=== PATIENT | female | born 1995 | race Native Hawaiian/Other Pacific Islander ===

== ENCOUNTER 2021-12-11 22:59 | Outpatient (CLI) | payer SELFPAY | END 2021-12-11 23:00 | disposition home or self-care (01) | LOC: AMB 12-12 11:50 | PROVIDERS: Visit Provider Internal Medicine | DX: R45.851 Suicidal ideations (principal); F91.9 Conduct disorder, unspecified | CPT/HCPCS: A0425; A0429 ==

== ENCOUNTER 2021-12-11 23:23 | Emergency (ER) | payer SELFPAY ==
--- NOTE | 2021-12-11 23:36 | PC.NURSE ---
Call to poison control. Watch for tachycardia, QTc prolongation, seizures, acidosis, and renal insufficiency. Watch for 8hrs. EKG, BMP, utox, acetaminophen, salicylates. Repeat EKG and labs in 6hrs. Can be given ativan and versed for agitation.
--- NOTE | 2021-12-11 23:36 | PC.NURSE ---
Pt arrives yelling and hitting at staff-MD at BS with initial exam-meds given as ordered. [employer] assist and given multiple chances of de escaltion and ambulate to BR pt was placed into restraints.
--- NOTE | 2021-12-11 23:38 | ED.PSYCH ---
HPI - Psych General Stated Complaint: Mental Health Time Seen by Provider: 12/11/21 23:38 History of Present Illness HPI Narrative: Patient is a 26-year-old woman who on Facebook live tonight ingested lorazepam sertraline and ibuprofen in amounts at her uncertain. EMS was called to the scene with long with police found the patient extremely agitated. She was combative and was placed in restraints. It is unclear whether she was trying to harm herself. She was brought to the emergency room where she continued to be combative. Further history is not available from the patient. Review of Systems Narrative: Unobtainable secondary to the patient's agitated state Exam Narrative: Exam Narrative: Limited exam patient is thrashing about and does not allow full physical exam. Course Consultations Consultation #1: Poison Control recommends observation on telemetry. MDM - Psych MDM Narrative Medical decision making narrative: Patient is a danger to herself. Originally was let out of her restraints that she needs use the restroom and was being cooperative. She then was thrashing about trying to hit staff. One point she tried to bite staff. She was forcibly restrained via EMS and police and was given Zyprexa 10 and Benadryl 50 IM. At this time laboratory studies will be obtained and she will be monitored closely. OB turning her case over to my colleague.
[2021-12-11 23:45] VITALS: BP 150/74; PULSE 96; RESP 16; TEMP 36.4; O2SAT 96
[2021-12-12] MEDS: OLANZapine 5 MG/ML inj 10 MG IM
[2021-12-12 00:02] VITALS: BP 116/53; PULSE 83; RESP 14; RESP 26; O2SAT 92
[2021-12-12] MEDS: diphenhydrAMINE 50 MG/ML inj IM (00:10)
[2021-12-12 00:30] LABS: Basophils Absolute Auto 0.03 K/uL (0.00-0.30); Basophils Percent Auto 0.4 % (0.0-3.0); Eosinophils Percent Auto 1.3 % (0.0-7.0); Hematocrit 37.5 % (33.0-51.0); Hemoglobin* 11.7 gm/dL (12.0-16.0); Lymphocytes Absolute Auto 2.46 K/uL (0.90-2.90); Lymphocytes Percent Auto 32.2 % (20-44); Mean Corpuscular HGB Conc 31 gm/dL (32-36); Mean Corpuscular Hemoglobin 25 pg (26-34); Mean Corpuscular Volume 81 fL (80-100); Monocytes Percent Auto 4.4 % (0.0-11.0); Neutrophils Absolute Auto 4.72 K/uL (1.7-7.0); Neutrophils Percent Auto 61.7 % (42.0-72.0); Platelet Count* 277 K/uL (140-440); Red Blood Count 4.66 m/uL (4.00-5.20); White Blood Count* 7.65 K/uL (4.50-11.00)
[2021-12-12 00:33] LABS: Slide Review Reflex No
[2021-12-12 00:44] LABS: Albumin* 3.9 g/dL (3.3-5.0); Chloride* 112 mmol/L (96-114); Sodium* 145 mmol/L (135-149)
[2021-12-12 00:45] LABS: Potassium* 3.1 mmol/L (3.6-5.1)
[2021-12-12 00:46] LABS: Creatinine* 0.6 mg/dL (0.5-1.5); Estimated Glomerular Filt Rate 128.46
--- NOTE | 2021-12-12 00:46 | ED.GENADULT ---
HPI - General Adult General Time Seen by Provider: 12:05 Date Seen: 12/12/21 Chief complaint: Psychiatric Problem/Disorder Stated complaint: Mental Health Time Seen by Provider: 12/11/21 23:38 Source: police and other (prior provider) Limitations: altered mental status History of Present Illness HPI narrative: Patient accepted in sign-out from Dr. Carlin benitez, please see his note for complete history and physical. Briefly this is a 26-year-old female who comes in after polysubstance overdose of sertraline, Ativan, ibuprofen. On initial arrival she was quite uncooperative, had received Zyprexa and Benadryl at the time of my exam. Review of chart shows the patient has a history of depression and anxiety, and alcohol dependence. Related Data Home Medications Medication Instructions Recorded Confirmed lorazepam 0.5 mg tablet 0.5 mg PO Q6-8H PRN 12/12/21 12/12/21 sertraline 50 mg tablet 50 mg PO DAILY 12/12/21 12/12/21 Allergies Allergy/AdvReac Type Severity Reaction Status Date / Time No Known Drug Allergies Allergy Verified 12/11/21 23:47 Review of Systems Status of ROS: Reports: unobtainable due to mental status [facility] Medical History (Updated 12/12/21 @ 01:35 by Marino Harrell RN) Depression Irritable bowel syndrome (IBS) Surgical History (Updated 12/12/21 @ 01:36 by Marino Harrell RN) No significant past surgical history Social History Smoking Status: Unknown if ever smoked Exam Narrative: Exam Narrative: General: Well-developed and well-nourished, no acute distress Head: Atraumatic and normocephalic Eyes: Pupils are equal reactive, extraocular motions intact, conjunctiva clear ENT: External nose and ears are normal, posterior pharynx without erythema or exudate Neck: No midline cervical tenderness, full spontaneous range of motion the neck, trachea midline, no adenopathy Heart: Regular rate and rhythm no murmurs or thrills Lungs: Clear to auscultation bilaterally without wheezes or crackles Abdomen: Soft, nontender, nondistended with active bowel sounds Musculoskeletal: No tenderness, deformity, or edema Neurologic: sedated, withdraws to pain with all 4 extremities Psych: unable to evaluate due to sedation Skin: No rashes Const: Vital Signs, click to edit/add: Vital Signs - 24 hr 12/11/21 23:45 12/12/21 00:02 12/12/21 01:02 Temperature 97.6 F Pulse Rate [Right Pulse Oximeter] 96 83 82 Respiratory Rate 16 14 14 Blood Pressure [Le ft Upper Arm] 150/74 H 116/53 L 121/58 L Pulse Oximetry 96 92 98 12/12/21 02:18 12/12/21 06:00 Temperature 97.6 F Pulse Rate [Right Pulse Oximeter] 72 Respiratory Rate 14 14 Blood Pressure [Le ft Upper Arm] 96/57 L Pulse Oximetry 99 96 Course Vital Signs Vital signs: Initial Vital Signs Temperature 97.6 F 12/11/21 23:45 Temperature Source Temporal Artery Scan 12/11/21 23:45 Pulse Rate 96 12/11/21 23:45 Respiratory Rate 16 12/11/21 23:45 Blood Pressure 150/74 H 12/11/21 23:45 Blood Pressure Mean 99 12/11/21 23:45 Blood Pressure Position Supine 12/11/21 23:45 Pulse Oximetry 96 12/11/21 23:45 Oxygen Delivery Method 12/11/21 23:45 Vital Signs Temperature 97.6 F 12/11/21 23:45 Pulse Rate 96 12/11/21 23:45 Respiratory Rate 16 12/11/21 23:45 Blood Pressure 150/74 H 12/11/21 23:45 Pulse Oximetry 96 12/11/21 23:45 Temperature 97.6 F 12/12/21 06:00 Pulse Rate 72 12/12/21 06:00 Respiratory Rate 14 12/12/21 06:00 Blood Pressure 96/57 L 12/12/21 06:00 Pulse Oximetry 96 12/12/21 06:00 Medical Decision Making MDM Narrative Medical decision making narrative: Patient accepted in sign-out from prior provider, prior records reviewed. Patient presents with polysubstance overdose and initially was agitated uncooperative. Received Zyprexa and Benadryl. Will need to be medically cleared and then plan for mental health assessment. Poison control was contacted earlier, patient will need about 6-8 hours to medically clear. Lab Data Labs: Lab Results 12/12/21 12/12/21 12/12/21 Range/Units 00:20 00:20 00:20 WBC 7.65 (4.50-11.00) K/uL RBC 4.66 (4.00-5.20) m/uL Hgb 11.7 L (12.0-16.0) gm/dL Hct 37.5 (33.0-51.0) % MCV 81 (80-100) fL MCH 25 L (26-34) pg MCHC 31 L (32-36) gm/dL RDW Coeff of Ismael 15.0 (11.5-15.5) % Plt Count 277 (140-440) K/uL Neut % (Auto) 61.7 (42.0-72.0) % Lymph % (Auto) 32.2 (20-44) % [place] % (Auto) 4.4 (0.0-11.0) % Eos % (Auto) 1.3 (0.0-7.0) % Baso % (Auto) 0.4 (0.0-3.0) % Neut # (Auto) 4.72 (1.7-7.0) K/uL Lymph # (Auto) 2.46 (0.90-2.90) K/uL [place] # (Auto) 0.30 (0.00-0.90) K/UL Eos # (Auto) 0.10 (0.00-0.50) K/uL Baso # (Auto) 0.03 (0.00-0.30) K/uL Abs Immat Gran (auto) 0.00 (0.00-0.30) K/uL Sodium 145 (135-149) mmol/L Potassium 3.1 L (3.6-5.1) mmol/L Chloride 112 (96-114) mmol/L Carbon Dioxide 22 (20-32) mmol/L BUN 11 (5-24) mg/dL Creatinine 0.6 (0.5-1.5) mg/dL Glucose 95 (60-115) mg/dL Calcium 8.5 (8.4-10.6) mg/dL Total Bilirubin 0.3 (0.1-1.5) mg/dL AST 27 (12-35) U/L ALT 20 (4-35) U/L Alkaline Phosphatase 79 (40-150) U/L Total Protein 6.6 (6.0-8.3) g/dL Albumin 3.9 (3.3-5.0) g/dL Urine HCG, Qual (Negative) Salicylates < 1.0 L (1.0-10) mg/dL Urine Opiates Screen (Negative) Ur Oxycodone Screen (Negative) Urine Methadone Screen (Negative) Ur Propoxyphene Screen (Negative) Acetaminophen < 10.0 L (10.0-30.0) ug/mL Ur Barbiturates Screen (Negative) U Tricyclic Antidepress (Negative) Ur Phencyclidine Scrn (Negative) Ur Amphetamines Screen (Negative) U Methamphetamines Scrn (Negative) U Benzodiazepines Scrn (Negative) Urine Cocaine Screen (Negative) U Marijuana (THC) Screen (Negative) Ur Drug Screen Comment Ethyl Alcohol 0.19 H (0.01-0.03) % 12/12/21 12/12/21 12/12/21 Range/Units 04:30 04:30 05:55 WBC (4.50-11.00) K/uL RBC (4.00-5.20) m/uL Hgb (12.0-16.0) gm/dL Hct (33.0-51.0) % MCV (80-100) fL MCH (26-34) pg MCHC (32-36) gm/dL RDW Coeff of Ismael (11.5-15.5) % Plt Count (140-440) K/uL Neut % (Auto) (42.0-72.0) % Lymph % (Auto) (20-44) % [place] % (Auto) (0.0-11.0) % Eos % (Auto) (0.0-7.0) % Baso % (Auto) (0.0-3.0) % Neut # (Auto) (1.7-7.0) K/uL Lymph # (Auto) (0.90-2.90) K/uL [place] # (Auto) (0.00-0.90) K/UL Eos # (Auto) (0.00-0.50) K/uL Baso # (Auto) (0.00-0.30) K/uL Abs Immat Gran (auto) (0.00-0.30) K/uL Sodium 145 (135-149) mmol/L Potassium 3.3 L (3.6-5.1) mmol/L Chloride 110 (96-114) mmol/L Carbon Dioxide 26 (20-32) mmol/L BUN 9 (5-24) mg/dL Creatinine 0.6 (0.5-1.5) mg/dL Glucose 91 (60-115) mg/dL Calcium 8.3 L (8.4-10.6) mg/dL Total Bilirubin (0.1-1.5) mg/dL AST (12-35) U/L ALT (4-35) U/L Alkaline Phosphatase (40-150) U/L Total Protein (6.0-8.3) g/dL Albumin (3.3-5.0) g/dL Urine HCG, Qual Negative (Negative) Salicylates (1.0-10) mg/dL Urine Opiates Screen Negative (Negative) Ur Oxycodone Screen Negative (Negative) Urine Methadone Screen Negative (Negative) Ur Propoxyphene Screen Negative (Negative) Acetaminophen (10.0-30.0) ug/mL Ur Barbiturates Screen Negative (Negative) U Tricyclic Antidepress Negative (Negative) Ur Phencyclidine Scrn Negative (Negative) Ur Amphetamines Screen Negative (Negative) U Methamphetamines Scrn Negative (Negative) U Benzodiazepines Scrn Negative (Negative) Urine Cocaine Screen Negative (Negative) U Marijuana (THC) Screen Negative (Negative) Ur Drug Screen Comment See Note Ethyl Alcohol 0.13 H (0.01-0.03) % ECG Data Attestation: I personally reviewed and interpreted this ECG as follows: Prior ECG tracings: available for review Interpretation: Performed at 12:51 p.m., normal sinus rhythm rate 77, no acute ST elevations or depressions, incomplete right bundle-branch block, [place] 170. No prior EKG for review. Critical Care Time Critical Care Time Critical Care Time: Yes Attestation: The patient required my highest level preparedness to intervene emergently and I personally spent this critical care time directly and personally managing the patient. This critical care time included: Obtaining a history; Examining the patient; Pulse oximetry; Ordering and reviewing of studies; Arranging urgent treatment with development of a management plan; Evaluation of patients response to treatment; Frequent reassessment discussions with other providers. This critical care time was performed to assess and manage the high probability of imminent life-threatening deterioration that could result in multiorgan failure. It was exclusive of separate billable procedures and treating other patients and teaching time. Total Critical Care Time in Minutes: 40 Discharge Plan Discharge Clinical Impression: Polysubstance overdose, Alcohol intoxication Prescriptions: No Action lorazepam 0.5 mg tablet 0.5 mg PO Q6-8H [id number] Label Comments: TAKE 1 TABLET BY MOUTH EVERY 6 TO 8 HOURS NEEDED FOR ANXIETY sertraline 50 mg tablet 50 mg PO DAILY 0RF Label Comments: TAKE 1 TABLET BY MOUTH EVERY DAY Follow Up/Referrals: Provider,Not a Local [Primary Care Provider] -
[2021-12-12 00:47] LABS: Alanine Aminotransferase* 20 U/L (4-35); Alkaline Phosphatase* 79 U/L (40-150); Aspartate Amino Transferase* 27 U/L (12-35); Bilirubin Total* 0.3 mg/dL (0.1-1.5); Blood Urea Nitrogen* 11 mg/dL (5-24); Calcium* 8.5 mg/dL (8.4-10.6); Carbon Dioxide* 22 mmol/L (20-32); Glucose* 95 mg/dL (60-115); Total Protein* 6.6 g/dL (6.0-8.3)
[2021-12-12 00:48] LABS: Acetaminophen* < 10.0 ug/mL (10.0-30.0); Ethanol* 0.19 % (0.01-0.03); Salicylate* < 1.0 mg/dL (1.0-10)
[2021-12-12 01:02] VITALS: BP 121/58; PULSE 82; RESP 14; O2SAT 98
--- NOTE | 2021-12-12 01:31 | ED.NURSE ---
removed restraint from left wrist and right ankle. will re-assess.
--- NOTE | 2021-12-12 01:54 | ED.NURSE ---
removed left ankle and right wrist restraints. pt. been sleeping. vitals stable.
[2021-12-12 02:18] VITALS: RESP 14; O2SAT 99
--- NOTE | 2021-12-12 04:10 | PC.NURSE ---
Patient has been resting on the stretcher since restraint removal. Eyes closed, RR 14, requiring some supplemental O2 (2L NC), O2 saturation 96%. No further behavioral issues at this time.
--- NOTE | 2021-12-12 04:40 | PC.NURSE ---
Addendum entered by Kiara Gómez RN 12/12/21 04:44: Patient also now off of supplemental O2. Oxygen saturation 95% on RA. Original Note: Patient woke up and needed to use the restroom. Cooperative at this time with staff. Up to BR, urine sample obtained in a hat and sent to lab. Patient back to bed. Questioning where cell phone is, life underwriter told patient it was locked away and safe.
[2021-12-12 04:52] LABS: Amphetamine Screen Urine Negative (Negative); Barbiturate Screen Urine Negative (Negative); Benzodiazepines Screen Urine Negative (Negative); Cannabinoid Screen Urine Negative (Negative); Cocaine Screen Urine Negative (Negative); Methadone Screen Urine Negative (Negative); Methamphetamines Screen Urine Negative (Negative); Opiate Screen Urine Negative (Negative); Oxycodone Screen Urine Negative (Negative); Phencyclidine Screen Urine Negative (Negative); Tricyclic Antidepressant Urine Negative (Negative)
[2021-12-12 06:00] VITALS: BP 96/57; PULSE 72; RESP 14; TEMP 36.4; O2SAT 96
--- NOTE | 2021-12-12 06:00 | PC.NURSE ---
Patient cooperative with staff for EKG, blood draw, and vital signs.
[2021-12-12 06:13] LABS: Chloride* 110 mmol/L (96-114); Potassium* 3.3 mmol/L (3.6-5.1); Sodium* 145 mmol/L (135-149)
[2021-12-12 06:15] LABS: Creatinine* 0.6 mg/dL (0.5-1.5); Estimated Glomerular Filt Rate 128.46
[2021-12-12 06:16] LABS: Blood Urea Nitrogen* 9 mg/dL (5-24); Calcium* 8.3 mg/dL (8.4-10.6); Carbon Dioxide* 26 mmol/L (20-32); Ethanol* 0.13 % (0.01-0.03); Glucose* 91 mg/dL (60-115)
[2021-12-12 06:43] LABS: Ur HCG Qualitative* Negative (Negative)
--- NOTE | 2021-12-12 07:00 | PC.NURSE ---
Updated poison control, they are signing off at this time.
--- NOTE | 2021-12-12 07:07 | PC.NURSE ---
Report to CHERELLE Crocker.
--- NOTE | 2021-12-12 08:26 | ED_ITS ---
HPI - General Adult General Chief complaint: Psychiatric Problem/Disorder Stated complaint: Mental Health Time Seen by Provider: 12/11/21 23:38 Source: police and other (prior provider) Limitations: altered mental status Related Data Home Medications Medication Instructions Recorded Confirmed lorazepam 0.5 mg tablet 0.5 mg PO Q6-8H PRN 12/12/21 12/12/21 sertraline 50 mg tablet 50 mg PO DAILY 12/12/21 12/12/21 Allergies Allergy/AdvReac Type Severity Reaction Status Date / Time No Known Drug Allergies Allergy Verified 12/11/21 23:47 [facility] Medical History (Updated 12/12/21 @ 01:35 by Marino Harrell RN) Depression Irritable bowel syndrome (IBS) Surgical History (Updated 12/12/21 @ 01:36 by Marino Harrell RN) No significant past surgical history Social History Smoking Status: Unknown if ever smoked Exam Const: Vital Signs, click to edit/add: Vital Signs - 24 hr 12/11/21 23:45 12/12/21 00:02 12/12/21 01:02 Temperature 97.6 F Pulse Rate [Right Pulse Oximeter] 96 83 82 Respiratory Rate 16 14 14 Blood Pressure [Le ft Upper Arm] 150/74 H 116/53 L 121/58 L Pulse Oximetry 96 92 98 12/12/21 02:18 12/12/21 06:00 12/12/21 12:00 Temperature 97.6 F Pulse Rate [Right Pulse Oximeter] 72 68 Respiratory Rate 14 14 18 Blood Pressure [Le ft Upper Arm] 96/57 L 126/72 Pulse Oximetry 99 96 97 Course Vital Signs Vital signs: Initial Vital Signs Temperature 97.6 F 12/11/21 23:45 Temperature Source Temporal Artery Scan 12/11/21 23:45 Pulse Rate 96 12/11/21 23:45 Respiratory Rate 16 12/11/21 23:45 Blood Pressure 150/74 H 12/11/21 23:45 Blood Pressure Mean 99 12/11/21 23:45 Blood Pressure Position Supine 12/11/21 23:45 Pulse Oximetry 96 12/11/21 23:45 Oxygen Delivery Method 12/11/21 23:45 Vital Signs Temperature 97.6 F 12/11/21 23:45 Pulse Rate 96 12/11/21 23:45 Respiratory Rate 16 12/11/21 23:45 Blood Pressure 150/74 H 12/11/21 23:45 Pulse Oximetry 96 12/11/21 23:45 Temperature 97.6 F 12/12/21 06:00 Pulse Rate 68 12/12/21 12:00 Respiratory Rate 18 12/12/21 12:00 Blood Pressure 126/72 12/12/21 12:00 Pulse Oximetry 97 12/12/21 12:00 Medical Decision Making MDM Narrative Medical decision making narrative: The patient's alcohol level is 0.13 as of a couple of hours ago, she still somewhat somnolent. When she wakes and is more communicative, will get a deck Telehealth assessment. Addendum: Given the patient's overdose, and her visit with telehealth mail distribution scheme examiner [place], they felt that admission for inpatient care would be appropriate as well as a hold, they will make appropriate attempts to make transfer and get bed placement. 72 hour hold will be signed as well as transfer sheets completed, patient remains in stable condition Lab Data Labs: Lab Results 12/12/21 12/12/21 12/12/21 Range/Units 00:20 00:20 00:20 WBC 7.65 (4.50-11.00) K/uL RBC 4.66 (4.00-5.20) m/uL Hgb 11.7 L (12.0-16.0) gm/dL Hct 37.5 (33.0-51.0) % MCV 81 (80-100) fL MCH 25 L (26-34) pg MCHC 31 L (32-36) gm/dL RDW Coeff of Ismael 15.0 (11.5-15.5) % Plt Count 277 (140-440) K/uL Neut % (Auto) 61.7 (42.0-72.0) % Lymph % (Auto) 32.2 (20-44) % [place] % (Auto) 4.4 (0.0-11.0) % Eos % (Auto) 1.3 (0.0-7.0) % Baso % (Auto) 0.4 (0.0-3.0) % Neut # (Auto) 4.72 (1.7-7.0) K/uL Lymph # (Auto) 2.46 (0.90-2.90) K/uL [place] # (Auto) 0.30 (0.00-0.90) K/UL Eos # (Auto) 0.10 (0.00-0.50) K/uL Baso # (Auto) 0.03 (0.00-0.30) K/uL Abs Immat Gran (auto) 0.00 (0.00-0.30) K/uL Sodium 145 (135-149) mmol/L Potassium 3.1 L (3.6-5.1) mmol/L Chloride 112 (96-114) mmol/L Carbon Dioxide 22 (20-32) mmol/L BUN 11 (5-24) mg/dL Creatinine 0.6 (0.5-1.5) mg/dL Glucose 95 (60-115) mg/dL Calcium 8.5 (8.4-10.6) mg/dL Total Bilirubin 0.3 (0.1-1.5) mg/dL AST 27 (12-35) U/L ALT 20 (4-35) U/L Alkaline Phosphatase 79 (40-150) U/L Total Protein 6.6 (6.0-8.3) g/dL Albumin 3.9 (3.3-5.0) g/dL Urine HCG, Qual (Negative) Salicylates < 1.0 L (1.0-10) mg/dL Urine Opiates Screen (Negative) Ur Oxycodone Screen (Negative) Urine Methadone Screen (Negative) Ur Propoxyphene Screen (Negative) Acetaminophen < 10.0 L (10.0-30.0) ug/mL Ur Barbiturates Screen (Negative) U Tricyclic Antidepress (Negative) Ur Phencyclidine Scrn (Negative) Ur Amphetamines Screen (Negative) U Methamphetamines Scrn (Negative) U Benzodiazepines Scrn (Negative) Urine Cocaine Screen (Negative) U Marijuana (THC) Screen (Negative) Ur Drug Screen Comment Ethyl Alcohol 0.19 H (0.01-0.03) % SARS-CoV-2 (PCR) (Negative) 12/12/21 12/12/21 12/12/21 Range/Units 04:30 04:30 05:55 WBC (4.50-11.00) K/uL RBC (4.00-5.20) m/uL Hgb (12.0-16.0) gm/dL Hct (33.0-51.0) % MCV (80-100) fL MCH (26-34) pg MCHC (32-36) gm/dL RDW Coeff of Ismael (11.5-15.5) % Plt Count (140-440) K/uL Neut % (Auto) (42.0-72.0) % Lymph % (Auto) (20-44) % [place] % (Auto) (0.0-11.0) % Eos % (Auto) (0.0-7.0) % Baso % (Auto) (0.0-3.0) % Neut # (Auto) (1.7-7.0) K/uL Lymph # (Auto) (0.90-2.90) K/uL [place] # (Auto) (0.00-0.90) K/UL Eos # (Auto) (0.00-0.50) K/uL Baso # (Auto) (0.00-0.30) K/uL Abs Immat Gran (auto) (0.00-0.30) K/uL Sodium 145 (135-149) mmol/L Potassium 3.3 L (3.6-5.1) mmol/L Chloride 110 (96-114) mmol/L Carbon Dioxide 26 (20-32) mmol/L BUN 9 (5-24) mg/dL Creatinine 0.6 (0.5-1.5) mg/dL Glucose 91 (60-115) mg/dL Calcium 8.3 L (8.4-10.6) mg/dL Total Bilirubin (0.1-1.5) mg/dL AST (12-35) U/L ALT (4-35) U/L Alkaline Phosphatase (40-150) U/L Total Protein (6.0-8.3) g/dL Albumin (3.3-5.0) g/dL Urine HCG, Qual Negative (Negative) Salicylates (1.0-10) mg/dL Urine Opiates Screen Negative (Negative) Ur Oxycodone Screen Negative (Negative) Urine Methadone Screen Negative (Negative) Ur Propoxyphene Screen Negative (Negative) Acetaminophen (10.0-30.0) ug/mL Ur Barbiturates Screen Negative (Negative) U Tricyclic Antidepress Negative (Negative) Ur Phencyclidine Scrn Negative (Negative) Ur Amphetamines Screen Negative (Negative) U Methamphetamines Scrn Negative (Negative) U Benzodiazepines Scrn Negative (Negative) Urine Cocaine Screen Negative (Negative) U Marijuana (THC) Screen Negative (Negative) Ur Drug Screen Comment See Note Ethyl Alcohol 0.13 H (0.01-0.03) % SARS-CoV-2 (PCR) (Negative) 12/12/21 Range/Units 10:59 WBC (4.50-11.00) K/uL RBC (4.00-5.20) m/uL Hgb (12.0-16.0) gm/dL Hct (33.0-51.0) % MCV (80-100) fL MCH (26-34) pg MCHC (32-36) gm/dL RDW Coeff of Ismael (11.5-15.5) % Plt Count (140-440) K/uL Neut % (Auto) (42.0-72.0) % Lymph % (Auto) (20-44) % [place] % (Auto) (0.0-11.0) % Eos % (Auto) (0.0-7.0) % Baso % (Auto) (0.0-3.0) % Neut # (Auto) (1.7-7.0) K/uL Lymph # (Auto) (0.90-2.90) K/uL [place] # (Auto) (0.00-0.90) K/UL Eos # (Auto) (0.00-0.50) K/uL Baso # (Auto) (0.00-0.30) K/uL Abs Immat Gran (auto) (0.00-0.30) K/uL Sodium (135-149) mmol/L Potassium (3.6-5.1) mmol/L Chloride (96-114) mmol/L Carbon Dioxide (20-32) mmol/L BUN (5-24) mg/dL Creatinine (0.5-1.5) mg/dL Glucose (60-115) mg/dL Calcium (8.4-10.6) mg/dL Total Bilirubin (0.1-1.5) mg/dL AST (12-35) U/L ALT (4-35) U/L Alkaline Phosphatase (40-150) U/L Total Protein (6.0-8.3) g/dL Albumin (3.3-5.0) g/dL Urine HCG, Qual (Negative) Salicylates (1.0-10) mg/dL Urine Opiates Screen (Negative) Ur Oxycodone Screen (Negative) Urine Methadone Screen (Negative) Ur Propoxyphene Screen (Negative) Acetaminophen (10.0-30.0) ug/mL Ur Barbiturates Screen (Negative) U Tricyclic Antidepress (Negative) Ur Phencyclidine Scrn (Negative) Ur Amphetamines Screen (Negative) U Methamphetamines Scrn (Negative) U Benzodiazepines Scrn (Negative) Urine Cocaine Screen (Negative) U Marijuana (THC) Screen (Negative) Ur Drug Screen Comment Ethyl Alcohol (0.01-0.03) % SARS-CoV-2 (PCR) Negative SARS-CoV-2 (Negative) Discharge Plan Discharge Clinical Impression: Polysubstance overdose, Alcohol intoxication Patient Disposition: Xfer Other Condition: Stable Additional Instructions: Transfer for inpatient mental health care Prescriptions: No Action lorazepam 0.5 mg tablet 0.5 mg PO Q6-8H [id number] Label Comments: TAKE 1 TABLET BY MOUTH EVERY 6 TO 8 HOURS NEEDED FOR ANXIETY sertraline 50 mg tablet 50 mg PO DAILY 0RF Label Comments: TAKE 1 TABLET BY MOUTH EVERY DAY Stand Alone Forms: MyHealth Info Instructions
--- NOTE | 2021-12-12 08:46 | ED.NURSE ---
pt sleeping, being visually observed by security with camera
--- NOTE | 2021-12-12 11:04 | ED.NURSE ---
woke enough to agree to doing a DEC assessment. DEC requested. declined offer of food and/or water
--- NOTE | 2021-12-12 11:32 | ED.NURSE ---
DEC in progress
[2021-12-12 11:51] LABS: SARS PCR* Negative SARS-CoV-2 (Negative)
[2021-12-12 12:00] VITALS: BP 126/72; PULSE 68; RESP 18; O2SAT 97
--- NOTE | 2021-12-12 13:41 | ED.NURSE ---
continues to sleep. chart info sent to [place] for consideration
--- NOTE | 2021-12-12 14:48 | ED.NURSE ---
sat pt up at bedside. declines bathroom, food or drink
--- NOTE | 2021-12-12 17:15 | ED.NURSE ---
pt up to bathroom. security noted pt to have left via one of the ED doors. attempt was made to locate within the hospital. PD was called. pt was located walking by PD. pt cooperative with PD to return to ED
--- NOTE | 2021-12-12 18:14 | ED_ITS ---
HPI - General Adult General Chief complaint: Psychiatric Problem/Disorder Stated complaint: Mental Health Time Seen by Provider: 12/11/21 23:38 Source: police and other (prior provider) Limitations: altered mental status Related Data Home Medications Medication Instructions Recorded Confirmed lorazepam 0.5 mg tablet 0.5 mg PO Q6-8H PRN 12/12/21 12/12/21 sertraline 50 mg tablet 50 mg PO DAILY 12/12/21 12/12/21 Allergies Allergy/AdvReac Type Severity Reaction Status Date / Time No Known Drug Allergies Allergy Verified 12/11/21 23:47 [facility] Medical History (Updated 12/12/21 @ 01:35 by Marino Harrell RN) Depression Irritable bowel syndrome (IBS) Surgical History (Updated 12/12/21 @ 01:36 by Marino Harrell RN) No significant past surgical history Social History Smoking Status: Unknown if ever smoked Exam Const: Vital Signs, click to edit/add: Vital Signs - 24 hr 12/11/21 23:45 12/12/21 00:02 12/12/21 01:02 Temperature 97.6 F Pulse Rate [Right Pulse Oximeter] 96 83 82 Respiratory Rate 16 14 14 Blood Pressure [Le ft Upper Arm] 150/74 H 116/53 L 121/58 L Pulse Oximetry 96 92 98 12/12/21 02:18 12/12/21 06:00 12/12/21 12:00 Temperature 97.6 F Pulse Rate [Right Pulse Oximeter] 72 68 Respiratory Rate 14 14 18 Blood Pressure [Le ft Upper Arm] 96/57 L 126/72 Pulse Oximetry 99 96 97 Course Vital Signs Vital signs: Initial Vital Signs Temperature 97.6 F 12/11/21 23:45 Temperature Source Temporal Artery Scan 12/11/21 23:45 Pulse Rate 96 12/11/21 23:45 Respiratory Rate 16 12/11/21 23:45 Blood Pressure 150/74 H 12/11/21 23:45 Blood Pressure Mean 99 12/11/21 23:45 Blood Pressure Position Supine 12/11/21 23:45 Pulse Oximetry 96 12/11/21 23:45 Oxygen Delivery Method 12/11/21 23:45 Vital Signs Temperature 97.6 F 12/11/21 23:45 Pulse Rate 96 12/11/21 23:45 Respiratory Rate 16 12/11/21 23:45 Blood Pressure 150/74 H 12/11/21 23:45 Pulse Oximetry 96 12/11/21 23:45 Temperature 97.6 F 12/12/21 06:00 Pulse Rate 68 12/12/21 12:00 Respiratory Rate 18 12/12/21 12:00 Blood Pressure 126/72 12/12/21 12:00 Pulse Oximetry 97 12/12/21 12:00 Medical Decision Making MDM Narrative Medical decision making narrative: The patient was found not to be in her room, appropriate measures by staff to relocate her are being performed. They are following their protocol. Lab Data Labs: Lab Results 12/12/21 12/12/21 12/12/21 Range/Units 00:20 00:20 00:20 WBC 7.65 (4.50-11.00) K/uL RBC 4.66 (4.00-5.20) m/uL Hgb 11.7 L (12.0-16.0) gm/dL Hct 37.5 (33.0-51.0) % MCV 81 (80-100) fL MCH 25 L (26-34) pg MCHC 31 L (32-36) gm/dL RDW Coeff of Ismael 15.0 (11.5-15.5) % Plt Count 277 (140-440) K/uL Neut % (Auto) 61.7 (42.0-72.0) % Lymph % (Auto) 32.2 (20-44) % Bland % (Auto) 4.4 (0.0-11.0) % Eos % (Auto) 1.3 (0.0-7.0) % Baso % (Auto) 0.4 (0.0-3.0) % Neut # (Auto) 4.72 (1.7-7.0) K/uL Lymph # (Auto) 2.46 (0.90-2.90) K/uL Bland # (Auto) 0.30 (0.00-0.90) K/UL Eos # (Auto) 0.10 (0.00-0.50) K/uL Baso # (Auto) 0.03 (0.00-0.30) K/uL Abs Immat Gran (auto) 0.00 (0.00-0.30) K/uL Sodium 145 (135-149) mmol/L Potassium 3.1 L (3.6-5.1) mmol/L Chloride 112 (96-114) mmol/L Carbon Dioxide 22 (20-32) mmol/L BUN 11 (5-24) mg/dL Creatinine 0.6 (0.5-1.5) mg/dL Glucose 95 (60-115) mg/dL Calcium 8.5 (8.4-10.6) mg/dL Total Bilirubin 0.3 (0.1-1.5) mg/dL AST 27 (12-35) U/L ALT 20 (4-35) U/L Alkaline Phosphatase 79 (40-150) U/L Total Protein 6.6 (6.0-8.3) g/dL Albumin 3.9 (3.3-5.0) g/dL Urine HCG, Qual (Negative) Salicylates < 1.0 L (1.0-10) mg/dL Urine Opiates Screen (Negative) Ur Oxycodone Screen (Negative) Urine Methadone Screen (Negative) Ur Propoxyphene Screen (Negative) Acetaminophen < 10.0 L (10.0-30.0) ug/mL Ur Barbiturates Screen (Negative) U Tricyclic Antidepress (Negative) Ur Phencyclidine Scrn (Negative) Ur Amphetamines Screen (Negative) U Methamphetamines Scrn (Negative) U Benzodiazepines Scrn (Negative) Urine Cocaine Screen (Negative) U Marijuana (THC) Screen (Negative) Ur Drug Screen Comment Ethyl Alcohol 0.19 H (0.01-0.03) % SARS-CoV-2 (PCR) (Negative) 12/12/21 12/12/21 12/12/21 Range/Units 04:30 04:30 05:55 WBC (4.50-11.00) K/uL RBC (4.00-5.20) m/uL Hgb (12.0-16.0) gm/dL Hct (33.0-51.0) % MCV (80-100) fL MCH (26-34) pg MCHC (32-36) gm/dL RDW Coeff of Ismael (11.5-15.5) % Plt Count (140-440) K/uL Neut % (Auto) (42.0-72.0) % Lymph % (Auto) (20-44) % Bland % (Auto) (0.0-11.0) % Eos % (Auto) (0.0-7.0) % Baso % (Auto) (0.0-3.0) % Neut # (Auto) (1.7-7.0) K/uL Lymph # (Auto) (0.90-2.90) K/uL Bland # (Auto) (0.00-0.90) K/UL Eos # (Auto) (0.00-0.50) K/uL Baso # (Auto) (0.00-0.30) K/uL Abs Immat Gran (auto) (0.00-0.30) K/uL Sodium 145 (135-149) mmol/L Potassium 3.3 L (3.6-5.1) mmol/L Chloride 110 (96-114) mmol/L Carbon Dioxide 26 (20-32) mmol/L BUN 9 (5-24) mg/dL Creatinine 0.6 (0.5-1.5) mg/dL Glucose 91 (60-115) mg/dL Calcium 8.3 L (8.4-10.6) mg/dL Total Bilirubin (0.1-1.5) mg/dL AST (12-35) U/L ALT (4-35) U/L Alkaline Phosphatase (40-150) U/L Total Protein (6.0-8.3) g/dL Albumin (3.3-5.0) g/dL Urine HCG, Qual Negative (Negative) Salicylates (1.0-10) mg/dL Urine Opiates Screen Negative (Negative) Ur Oxycodone Screen Negative (Negative) Urine Methadone Screen Negative (Negative) Ur Propoxyphene Screen Negative (Negative) Acetaminophen (10.0-30.0) ug/mL Ur Barbiturates Screen Negative (Negative) U Tricyclic Antidepress Negative (Negative) Ur Phencyclidine Scrn Negative (Negative) Ur Amphetamines Screen Negative (Negative) U Methamphetamines Scrn Negative (Negative) U Benzodiazepines Scrn Negative (Negative) Urine Cocaine Screen Negative (Negative) U Marijuana (THC) Screen Negative (Negative) Ur Drug Screen Comment See Note Ethyl Alcohol 0.13 H (0.01-0.03) % SARS-CoV-2 (PCR) (Negative) 12/12/21 Range/Units 10:59 WBC (4.50-11.00) K/uL RBC (4.00-5.20) m/uL Hgb (12.0-16.0) gm/dL Hct (33.0-51.0) % MCV (80-100) fL MCH (26-34) pg MCHC (32-36) gm/dL RDW Coeff of Ismael (11.5-15.5) % Plt Count (140-440) K/uL Neut % (Auto) (42.0-72.0) % Lymph % (Auto) (20-44) % Bland % (Auto) (0.0-11.0) % Eos % (Auto) (0.0-7.0) % Baso % (Auto) (0.0-3.0) % Neut # (Auto) (1.7-7.0) K/uL Lymph # (Auto) (0.90-2.90) K/uL Bland # (Auto) (0.00-0.90) K/UL Eos # (Auto) (0.00-0.50) K/uL Baso # (Auto) (0.00-0.30) K/uL Abs Immat Gran (auto) (0.00-0.30) K/uL Sodium (135-149) mmol/L Potassium (3.6-5.1) mmol/L Chloride (96-114) mmol/L Carbon Dioxide (20-32) mmol/L BUN (5-24) mg/dL Creatinine (0.5-1.5) mg/dL Glucose (60-115) mg/dL Calcium (8.4-10.6) mg/dL Total Bilirubin (0.1-1.5) mg/dL AST (12-35) U/L ALT (4-35) U/L Alkaline Phosphatase (40-150) U/L Total Protein (6.0-8.3) g/dL Albumin (3.3-5.0) g/dL Urine HCG, Qual (Negative) Salicylates (1.0-10) mg/dL Urine Opiates Screen (Negative) Ur Oxycodone Screen (Negative) Urine Methadone Screen (Negative) Ur Propoxyphene Screen (Negative) Acetaminophen (10.0-30.0) ug/mL Ur Barbiturates Screen (Negative) U Tricyclic Antidepress (Negative) Ur Phencyclidine Scrn (Negative) Ur Amphetamines Screen (Negative) U Methamphetamines Scrn (Negative) U Benzodiazepines Scrn (Negative) Urine Cocaine Screen (Negative) U Marijuana (THC) Screen (Negative) Ur Drug Screen Comment Ethyl Alcohol (0.01-0.03) % SARS-CoV-2 (PCR) Negative SARS-CoV-2 (Negative) Discharge Plan Discharge Clinical Impression: Polysubstance overdose, Alcohol intoxication Patient Disposition: Xfer Other Condition: Stable Additional Instructions: Transfer for inpatient mental health care Prescriptions: No Action lorazepam 0.5 mg tablet 0.5 mg PO Q6-8H [id number] Label Comments: TAKE 1 TABLET BY MOUTH EVERY 6 TO 8 HOURS NEEDED FOR ANXIETY sertraline 50 mg tablet 50 mg PO DAILY 0RF Label Comments: TAKE 1 TABLET BY MOUTH EVERY DAY Stand Alone Forms: MyHealth Info Instructions
--- NOTE | 2021-12-12 19:06 | ED.GENADULT ---
HPI - General Adult General Chief complaint: Psychiatric Problem/Disorder Stated complaint: Mental Health Time Seen by Provider: 12/11/21 23:38 Source: police and other (prior provider) Limitations: altered mental status Related Data Home Medications Medication Instructions Recorded Confirmed lorazepam 0.5 mg tablet 0.5 mg PO Q6-8H PRN 12/12/21 12/12/21 sertraline 50 mg tablet 50 mg PO DAILY 12/12/21 12/12/21 Allergies Allergy/AdvReac Type Severity Reaction Status Date / Time No Known Drug Allergies Allergy Verified 12/11/21 23:47 [facility] Medical History (Updated 12/12/21 @ 01:35 by Marino Harrell RN) Depression Irritable bowel syndrome (IBS) Surgical History (Updated 12/12/21 @ 01:36 by Marino Harrell RN) No significant past surgical history Social History Smoking Status: Unknown if ever smoked Exam Const: Vital Signs, click to edit/add: Vital Signs - 24 hr 12/11/21 23:45 12/12/21 00:02 12/12/21 01:02 Temperature 97.6 F Pulse Rate [Right Pulse Oximeter] 96 83 82 Respiratory Rate 16 14 14 Blood Pressure [Le ft Upper Arm] 150/74 H 116/53 L 121/58 L Pulse Oximetry 96 92 98 12/12/21 02:18 12/12/21 06:00 12/12/21 12:00 Temperature 97.6 F Pulse Rate [Right Pulse Oximeter] 72 68 Respiratory Rate 14 14 18 Blood Pressure [Le ft Upper Arm] 96/57 L 126/72 Pulse Oximetry 99 96 97 Course Vital Signs Vital signs: Initial Vital Signs Temperature 97.6 F 12/11/21 23:45 Temperature Source Temporal Artery Scan 12/11/21 23:45 Pulse Rate 96 12/11/21 23:45 Respiratory Rate 16 12/11/21 23:45 Blood Pressure 150/74 H 12/11/21 23:45 Blood Pressure Mean 99 12/11/21 23:45 Blood Pressure Position Supine 12/11/21 23:45 Pulse Oximetry 96 12/11/21 23:45 Oxygen Delivery Method 12/11/21 23:45 Vital Signs Temperature 97.6 F 12/11/21 23:45 Pulse Rate 96 12/11/21 23:45 Respiratory Rate 16 12/11/21 23:45 Blood Pressure 150/74 H 12/11/21 23:45 Pulse Oximetry 96 12/11/21 23:45 Temperature 97.6 F 12/12/21 06:00 Pulse Rate 68 12/12/21 12:00 Respiratory Rate 18 12/12/21 12:00 Blood Pressure 126/72 12/12/21 12:00 Pulse Oximetry 97 12/12/21 12:00 Medical Decision Making MDM Narrative Medical decision making narrative: The patient continues to wonder out of the ER despite careful monitoring by security and nursing staff. I think the best course of action currently is to sedate her with Zyprexa IM and this will be ordered. She is on a 72 hour hold and we await inpatient placement. Lab Data Labs: Lab Results 12/12/21 12/12/21 12/12/21 Range/Units 00:20 00:20 00:20 WBC 7.65 (4.50-11.00) K/uL RBC 4.66 (4.00-5.20) m/uL Hgb 11.7 L (12.0-16.0) gm/dL Hct 37.5 (33.0-51.0) % MCV 81 (80-100) fL MCH 25 L (26-34) pg MCHC 31 L (32-36) gm/dL RDW Coeff of Ismael 15.0 (11.5-15.5) % Plt Count 277 (140-440) K/uL Neut % (Auto) 61.7 (42.0-72.0) % Lymph % (Auto) 32.2 (20-44) % Mcdonald % (Auto) 4.4 (0.0-11.0) % Eos % (Auto) 1.3 (0.0-7.0) % Baso % (Auto) 0.4 (0.0-3.0) % Neut # (Auto) 4.72 (1.7-7.0) K/uL Lymph # (Auto) 2.46 (0.90-2.90) K/uL Mcdonald # (Auto) 0.30 (0.00-0.90) K/UL Eos # (Auto) 0.10 (0.00-0.50) K/uL Baso # (Auto) 0.03 (0.00-0.30) K/uL Abs Immat Gran (auto) 0.00 (0.00-0.30) K/uL Sodium 145 (135-149) mmol/L Potassium 3.1 L (3.6-5.1) mmol/L Chloride 112 (96-114) mmol/L Carbon Dioxide 22 (20-32) mmol/L BUN 11 (5-24) mg/dL Creatinine 0.6 (0.5-1.5) mg/dL Glucose 95 (60-115) mg/dL Calcium 8.5 (8.4-10.6) mg/dL Total Bilirubin 0.3 (0.1-1.5) mg/dL AST 27 (12-35) U/L ALT 20 (4-35) U/L Alkaline Phosphatase 79 (40-150) U/L Total Protein 6.6 (6.0-8.3) g/dL Albumin 3.9 (3.3-5.0) g/dL Urine HCG, Qual (Negative) Salicylates < 1.0 L (1.0-10) mg/dL Urine Opiates Screen (Negative) Ur Oxycodone Screen (Negative) Urine Methadone Screen (Negative) Ur Propoxyphene Screen (Negative) Acetaminophen < 10.0 L (10.0-30.0) ug/mL Ur Barbiturates Screen (Negative) U Tricyclic Antidepress (Negative) Ur Phencyclidine Scrn (Negative) Ur Amphetamines Screen (Negative) U Methamphetamines Scrn (Negative) U Benzodiazepines Scrn (Negative) Urine Cocaine Screen (Negative) U Marijuana (THC) Screen (Negative) Ur Drug Screen Comment Ethyl Alcohol 0.19 H (0.01-0.03) % SARS-CoV-2 (PCR) (Negative) 12/12/21 12/12/21 12/12/21 Range/Units 04:30 04:30 05:55 WBC (4.50-11.00) K/uL RBC (4.00-5.20) m/uL Hgb (12.0-16.0) gm/dL Hct (33.0-51.0) % MCV (80-100) fL MCH (26-34) pg MCHC (32-36) gm/dL RDW Coeff of Ismael (11.5-15.5) % Plt Count (140-440) K/uL Neut % (Auto) (42.0-72.0) % Lymph % (Auto) (20-44) % Mcdonald % (Auto) (0.0-11.0) % Eos % (Auto) (0.0-7.0) % Baso % (Auto) (0.0-3.0) % Neut # (Auto) (1.7-7.0) K/uL Lymph # (Auto) (0.90-2.90) K/uL Mcdonald # (Auto) (0.00-0.90) K/UL Eos # (Auto) (0.00-0.50) K/uL Baso # (Auto) (0.00-0.30) K/uL Abs Immat Gran (auto) (0.00-0.30) K/uL Sodium 145 (135-149) mmol/L Potassium 3.3 L (3.6-5.1) mmol/L Chloride 110 (96-114) mmol/L Carbon Dioxide 26 (20-32) mmol/L BUN 9 (5-24) mg/dL Creatinine 0.6 (0.5-1.5) mg/dL Glucose 91 (60-115) mg/dL Calcium 8.3 L (8.4-10.6) mg/dL Total Bilirubin (0.1-1.5) mg/dL AST (12-35) U/L ALT (4-35) U/L Alkaline Phosphatase (40-150) U/L Total Protein (6.0-8.3) g/dL Albumin (3.3-5.0) g/dL Urine HCG, Qual Negative (Negative) Salicylates (1.0-10) mg/dL Urine Opiates Screen Negative (Negative) Ur Oxycodone Screen Negative (Negative) Urine Methadone Screen Negative (Negative) Ur Propoxyphene Screen Negative (Negative) Acetaminophen (10.0-30.0) ug/mL Ur Barbiturates Screen Negative (Negative) U Tricyclic Antidepress Negative (Negative) Ur Phencyclidine Scrn Negative (Negative) Ur Amphetamines Screen Negative (Negative) U Methamphetamines Scrn Negative (Negative) U Benzodiazepines Scrn Negative (Negative) Urine Cocaine Screen Negative (Negative) U Marijuana (THC) Screen Negative (Negative) Ur Drug Screen Comment See Note Ethyl Alcohol 0.13 H (0.01-0.03) % SARS-CoV-2 (PCR) (Negative) 12/12/21 Range/Units 10:59 WBC (4.50-11.00) K/uL RBC (4.00-5.20) m/uL Hgb (12.0-16.0) gm/dL Hct (33.0-51.0) % MCV (80-100) fL MCH (26-34) pg MCHC (32-36) gm/dL RDW Coeff of Ismael (11.5-15.5) % Plt Count (140-440) K/uL Neut % (Auto) (42.0-72.0) % Lymph % (Auto) (20-44) % Mcdonald % (Auto) (0.0-11.0) % Eos % (Auto) (0.0-7.0) % Baso % (Auto) (0.0-3.0) % Neut # (Auto) (1.7-7.0) K/uL Lymph # (Auto) (0.90-2.90) K/uL Mcdonald # (Auto) (0.00-0.90) K/UL Eos # (Auto) (0.00-0.50) K/uL Baso # (Auto) (0.00-0.30) K/uL Abs Immat Gran (auto) (0.00-0.30) K/uL Sodium (135-149) mmol/L Potassium (3.6-5.1) mmol/L Chloride (96-114) mmol/L Carbon Dioxide (20-32) mmol/L BUN (5-24) mg/dL Creatinine (0.5-1.5) mg/dL Glucose (60-115) mg/dL Calcium (8.4-10.6) mg/dL Total Bilirubin (0.1-1.5) mg/dL AST (12-35) U/L ALT (4-35) U/L Alkaline Phosphatase (40-150) U/L Total Protein (6.0-8.3) g/dL Albumin (3.3-5.0) g/dL Urine HCG, Qual (Negative) Salicylates (1.0-10) mg/dL Urine Opiates Screen (Negative) Ur Oxycodone Screen (Negative) Urine Methadone Screen (Negative) Ur Propoxyphene Screen (Negative) Acetaminophen (10.0-30.0) ug/mL Ur Barbiturates Screen (Negative) U Tricyclic Antidepress (Negative) Ur Phencyclidine Scrn (Negative) Ur Amphetamines Screen (Negative) U Methamphetamines Scrn (Negative) U Benzodiazepines Scrn (Negative) Urine Cocaine Screen (Negative) U Marijuana (THC) Screen (Negative) Ur Drug Screen Comment Ethyl Alcohol (0.01-0.03) % SARS-CoV-2 (PCR) Negative SARS-CoV-2 (Negative) Discharge Plan Discharge Clinical Impression: Polysubstance overdose, Alcohol intoxication Patient Disposition: Xfer Other Condition: Stable Additional Instructions: Transfer for inpatient mental health care Prescriptions: No Action lorazepam 0.5 mg tablet 0.5 mg PO Q6-8H [id number] Label Comments: TAKE 1 TABLET BY MOUTH EVERY 6 TO 8 HOURS NEEDED FOR ANXIETY sertraline 50 mg tablet 50 mg PO DAILY 0RF Label Comments: TAKE 1 TABLET BY MOUTH EVERY DAY Stand Alone Forms: MyHealth Info Instructions
--- NOTE | 2021-12-12 19:34 | ED.NURSE ---
Patient asking how long for the next step, pt updated on awaiting call back on patient placement, pt states I cant deal with this I have things to do, I need to leave Pt educated on process and being on a hold, pt walked out of ER through clinic and outside walking down pathway on side of road. security and PD called, pt stopped walking on pathway and agreed to come back into the ER with ride from [facility] to speak with MD to try to get off hold and go home. Pt back in room and MD in to speak with pt. pt was not physically or verbally aggressive.
[2021-12-12] MEDS: POTASSIUM CHLORIDE 10 MEQ CAPSULE ER 40 MEQ PO (20:31)
[2021-12-12 20:39] VITALS: BP 124/68; PULSE 66; RESP 16; TEMP 36.6; O2SAT 99
--- NOTE | 2021-12-12 20:49 | ED.NURSE ---
Report called to Rios VILLARREAL at [facility] adrian wilcox- [phone], Rios states pt is accepted and can come any time, EMS rig called- awaiting ride.
--- NOTE | 2021-12-12 21:30 | ED.NURSE ---
Report to [facility], pt cooperative and pleasant on transport out.
== END 2021-12-12 21:30 | disposition other institution (70) ==
PROVIDERS: Family Medicine; Internal Medicine; Emergency Provider Family Medicine
DX: F19.120 Other psychoactive substance abuse with intoxication, uncomplicated (principal); F10.129 Alcohol abuse with intoxication, unspecified
CPT/HCPCS: 36415; 80048; 80053; 80143; 80179; 80306; 81025; 82077; 85025; 87635; 93005; 96372; 99283; 99284; 99285; 99291; A9270; J1200; S0166

== ENCOUNTER 2021-12-12 21:29 | Outpatient (CLI) | payer SELFPAY | END 2021-12-12 21:30 | disposition home or self-care (01) | LOC: AMB 12-20 12:50 | PROVIDERS: Visit Provider Family Medicine | DX: R45.851 Suicidal ideations (principal) | CPT/HCPCS: A0425; A0428 ==